=== PATIENT | male | born 1955 | race Two or more races ===

== ENCOUNTER 2019-08-11 06:35 | Emergency (ER) | payer SELFPAY ==
[~2019-08-11] VITALS: Ht 182.9 cm; Wt 91.6 kg
--- NOTE | 2019-08-11 06:47 | NUR ---
PATIENT CAME TO ER BED 9 C/O NONRADIATING MIDSTERNAL CHEST PAIN THAT HAS BEEN ON AND OFF FOR A "COUPLE OF WEEKS". PATIENT STATES THAT HE TOOK AN ALIEVE AT HOME FOR THIS CHEST PAIN. AAOX4. NO SOB. BREATHING EVENLY AND UNLABORED ON ROOM AIR. CONNECTED TO MONITOR.
--- NOTE | 2019-08-11 06:49 | NUR ---
BLOOD DRAWN AND SENT TO THE LAB
[2019-08-11] MEDS ORDERED: NITROGLYCERIN PACKET 1 GM PACKET ONE (06:50)
[2019-08-11] MEDS ORDERED: ASPIRIN 325 MG TABLET ONE (06:50)
[2019-08-11 06:59] LABS: BASOPHILS # (AUTO) 0.1 /CMM (0.0-0.2); BASOPHILS % (AUTO) 0.5 % (0.0-2.0); EOSINOPHILS % (AUTO) 0.1 % (0.0-6.0); HEMATOCRIT 57 % (39-51); HEMOGLOBIN 18.9 g/dL (13.5-17.5); LYMPHOCYTES # (AUTO) 1.1 /CMM (0.8-4.8); LYMPHOCYTES % (AUTO) 6.3 % (20.0-44.0); MEAN CORPUSCULAR HGB CONC 33 g/dl (31.0-36.0); MEAN CORPUSCULAR VOLUME 91 fL (80-96); MONOCYTES # (AUTO) 0.8 /CMM (0.1-1.30); MONOCYTES % (AUTO) 4.5 % (2.0-12.0); NEUTROPHILS # (AUTO) 16.1 /CMM (1.8-8.9); NEUTROPHILS % (AUTO) 88.6 % (43.0-81.0); PLATELET COUNT (AUTO) 235 /CMM (150-450); RED BLOOD CELL COUNT(AUTO) 6.24 MIL/uL (4.5-6.0); WHITE BLOOD COUNT (AUTO) 18.1 K/uL (4.3-11.0)
[2019-08-11] MEDS ORDERED: NITROGLYCERIN PACKET 1 GM PACKET TD ONE (07:00)
[2019-08-11] MEDS ORDERED: ASPIRIN 325 MG TABLET PO ONE (07:00)
--- NOTE | 2019-08-11 07:00 | NUR ---
MD MARTINEZ AT BEDSIDE FOR ULTRASOUND ON PATIENT.
[2019-08-11 07:07] LABS: CALCIUM, SERUM 9.6 mg/dL (8.5-10.1); CREATININE 1.4 mg/dL (0.6-1.3); POTASSIUM 3.8 mmol/L (3.5-5.1)
[2019-08-11 07:13] LABS: ALBUMIN 3.7 g/dL (3.4-5.0); BILIRUBIN,DIRECT 0.2 mg/dL (0.0-0.2); BILIRUBIN,TOTAL 1.8 mg/dL (0.2-1.0); TOTAL PROTEIN, SERUM 7.9 g/dL (6.4-8.2)
[2019-08-11 07:16] LABS: BAND % (MANUAL) 2 % (0.0-5.0); LYMPHOCYTES % (MANUAL) 8 % (16-48); MONOCYTES % (MANUAL) 5 % (0-11.0); NEUTROPHILS % (MANUAL) 85 (42-76)
--- NOTE | 2019-08-11 07:24 | NUR ---
ER DOC ON PHONE WITH CARDIO
--- NOTE | 2019-08-11 07:39 | NUR ---
REPORT GIVEN TO TERESA KWOK FOR [facility].
--- NOTE | 2019-08-11 07:45 | NUR ---
CALLED [facility] FOR CODE 3 ACLS TRANSPORT TO [facility] ETA 10 MINUTES OR LESS.
[2019-08-11 07:55] VITALS: BP 150/96
--- NOTE | 2019-08-11 08:09 | NUR ---
REPORT GIVEN TO CRYSTAL ALEXANDER TRANFERED TO [facility] VIA CRITICAL TRANSPORT.
== END 2019-08-11 08:12 | disposition short-term general hospital (02) ==
LOC: ER 06:37
DX: I21.9 Acute myocardial infarction, unspecified (principal); F12.90 Cannabis use, unspecified, uncomplicated; Z88.0 Allergy status to penicillin
CPT/HCPCS: 36415; 71045-TC; 80048-TC; 80076-TC; 83690-TC; 84484-TC; 85025-TC